=== PATIENT | female | born 1970 | race Caucasian/White ===

== ENCOUNTER 2024-08-20 10:38 | Outpatient (CLI) | payer OTHER | END 2024-08-20 10:39 | disposition home or self-care (01) | LOC: BICRAD 10:38 | PROVIDERS: ATTEND Pharmacy Technician | DX: M54.50 Low back pain, unspecified (principal); M53.86 Other specified dorsopathies, lumbar region; M54.6 Pain in thoracic spine; M62.838 Other muscle spasm; W16.92XA Jumping or diving into unspecified water causing other injury, initial encounter | CPT/HCPCS: 72100 ==